=== PATIENT | male | born 1980 | race Caucasian/White ===

== ENCOUNTER → 2021-05-12 | Outpatient (CLI) | payer MEDICARE, OTHER ==
[2021-05-12 18:39] LABS: CHOL/HDL RATIO 7.3 (4.2-7.3)
== END | disposition home or self-care (01) ==
LOC: LABMN 13:25
PROVIDERS: ATTEND Psychiatry & Neurology Psychiatry
DX: F25.0 Schizoaffective disorder, bipolar type (principal)
CPT/HCPCS: 80061; 82947

== ENCOUNTER → 2022-08-03 | Outpatient (CLI) | payer MEDICARE, OTHER ==
[2022-08-03 15:43] LABS: HEMOGLOBIN A1C 5.6 % (3.8-5.6)
[2022-08-03 15:53] LABS: CHOL/HDL RATIO 8.1 (4.2-7.3)
== END | disposition home or self-care (01) ==
LOC: LABMN 11:35
PROVIDERS: ATTEND Psychiatry & Neurology Psychiatry
DX: F25.1 Schizoaffective disorder, depressive type (principal)
CPT/HCPCS: 80061; 82947; 83036